=== PATIENT | female | born 1960 | race American Indian/Alaskan Native ===

== ENCOUNTER 2016-08-08 13:50 | Outpatient (CLI) | payer BC ==
--- NOTE | 2016-08-08 14:43 | Mammography Report ---
Right diagnostic mammogram: Compared to 01/24/16. CAD study utilized. History: Suspected pea-sized lump right armpit. Findings: Predominance adipose tissue. Benign calcification. No mass. No microcalcification. Normal axilla. Impression: Benign findings. Annual followup with mammogram recommended. BI-RADS CATEGORY: 2 = Benign ACR BI-RADS MAMMOGRAPHIC CODES: 0 = Needs additional imaging evaluation; 1 = Negative; 2 = Benign; 3 = Probably benign; 4 = Suspicious; 5 = Malignant; 6 = Known biopsy-proven malignancy COMMENT: 1. Dense breast tissue, i.e., adenosis, fibrocystic changes, etc., may obscure an underlying neoplasm. 2. Approximately 10% of cancers are not detected with mammography. 3. A negative mammography report should not delay biopsy if a clinically suspicious mass is present. COMMENT: Patient follow-up letters are generated in [employer].
== END 2016-08-08 13:51 | disposition home or self-care (01) ==
LOC: MAMMO 13:50
PROVIDERS: ATTEND Internal Medicine
DX: R92.8 Other abnormal and inconclusive findings on diagnostic imaging of breast (principal)
CPT/HCPCS: G0206-RT